=== PATIENT | male | born 1970 | race African-American/Black ===

== ENCOUNTER 2017-06-07 08:11 | Emergency (ER) | payer SELFPAY ==
[~2017-06-07] VITALS: Ht 185.4 cm; Wt 74.0 kg
[2017-06-07 10:00] VITALS: BP 113/70
== END 2017-06-07 10:10 | disposition home or self-care (01) ==
LOC: ED 09:10
DX: Z00.00 Encounter for general adult medical examination without abnormal findings (principal); F17.200 Nicotine dependence, unspecified, uncomplicated
CPT/HCPCS: 99283

== ENCOUNTER 2019-09-27 05:33 | Emergency (ER) | payer MEDICAID ==
[~2019-09-27] VITALS: Ht 185.4 cm; Wt 77.1 kg
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
--- NOTE | 2019-09-27 06:38 | NUR ---
PT SLEEPING, NO DISTRESS NOTED. VSS. PLACED CALL LIGHT WITHIN REACH.
--- NOTE | 2019-09-27 06:55 | NUR ---
REPORT TO MARY RASMUSSEN.
--- NOTE | 2019-09-27 06:57 | NUR ---
Received bedside report from GRADY [place]. All questions answered. Pt asleep on gurney with unlabored respirations and even chest rise and fall, no acute distress noticed. Call light within reach and bedrails up for safety. No needs expressed at this time.
--- NOTE | 2019-09-27 08:59 | NUR ---
Patient given discharge instructions and they have confirmed that they understand the instructions. Patient ambulatory with steady gait. Pt left with d/c paperwork and all personal belongings. NADN. No needs expressed.
[2019-09-27 09:00] VITALS: BP 133/86
== END 2019-09-27 09:02 | disposition home or self-care (01) ==
LOC: ED 08:56
DX: S83.92XA Sprain of unspecified site of left knee, initial encounter (principal); R26.2 Difficulty in walking, not elsewhere classified; F17.200 Nicotine dependence, unspecified, uncomplicated; V48.4XXA Person boarding or alighting a car injured in noncollision transport accident, initial encounter; Y93.89 Activity, other specified; Y92.410 Unspecified street and highway as the place of occurrence of the external cause; Y99.8 Other external cause status
CPT/HCPCS: 99284; 99285

== ENCOUNTER 2020-11-27 00:31 | Emergency (ER) | payer MEDICAID ==
[~2020-11-27] VITALS: Ht 182.9 cm; Wt 72.0 kg
--- NOTE | 2020-11-27 00:55 | NUR ---
RETAIL INTERIOR DESIGNER: PT. TO ROOM FROM WALL WITH ALEIDA.
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
--- NOTE | 2020-11-27 01:50 | NUR ---
ASSUMING CARE OF PT. FROM GRADY RENTERIA AT THIS TIME. PT. RESTING ON GURNEY WITH EYES CLOSED. RESPIRATTIONS EVEN, NON-LABORED. SPO2 AND B/P MONITORS IN PLACE. PT. TO BE D/C WHEN ABLE TO AMBULATE WITH STEADY GAIT.
--- NOTE | 2020-11-27 02:20 | NUR ---
REPORT BACK TO GRADY RENTERIA TO RE-ASSUME CARE OF PT. PT. VERY DROWSY AT THIS TIME.
--- NOTE | 2020-11-27 02:30 | NUR ---
ATTEMPTED TO AMBULATE PT UNSUCCESSFULLY. PT UNSTEADY ON HIS FEET, REFUSING TO OPEN HIS EYES WHILE STANDING. PT HELPED BACK TO BED BY STAFF. BED RAILS UPX2
--- NOTE | 2020-11-27 05:32 | NUR ---
pt resting on gurney. respirations even and unlabored. attached to bp and sp02 monitors.
[2020-11-27 05:38] VITALS: BP 107/51
--- NOTE | 2020-11-27 05:44 | NUR ---
pt up and ambulatory to the discharge desk with a steady gait.
== END 2020-11-27 05:45 | disposition home or self-care (01) ==
LOC: ED 01:08
DX: F15.129 Other stimulant abuse with intoxication, unspecified (principal); Z72.9 Problem related to lifestyle, unspecified; F17.210 Nicotine dependence, cigarettes, uncomplicated
CPT/HCPCS: 99283; 99284; 99406